=== PATIENT | male | born 1995 | race Caucasian/White ===

== ENCOUNTER 2019-09-07 11:33 | Emergency (ER) | payer OTHER ==
--- NOTE | 2019-09-07 11:36 | ERPHSYRPT ---
- History of Present Illness Time Seen by Provider: 09/07/19 11:36 Source: patient Exam Limitations: no limitations Physician History: This is a left-handed 24-year-old white male who was fishing yesterday when a carp jumped into his boat. The fish was large. Patient states that he punched the fish several times with his right hand. Today he has pain and swelling in his right hand. Occurred: yesterday Quality: constant, aching Severity of Pain-Max: mild Severity of Pain-Current: mild Extremities Pain Location: hand: right Modifying Factors: Improves With: movement Associated Symptoms: none Allergies/Adverse Reactions: acetaminophen [From Vicodin] Adverse Reaction (Intermediate, Verified 09/07/19 11:45) aggression hydrocodone [From Vicodin] Adverse Reaction (Intermediate, Verified 09/07/19 11:45) aggression Home Medications: No Reportable Medications [No Reported Medications] 09/07/19 [History] Travel Risk - International Travel Have you traveled outside of the country in past 3 weeks: No - Coronavirus Screening Are you exhibiting any of the following symptoms?: No Close contact with a COVID-19 positive Pt in past 14-21 Days: No - Review of Systems Constitutional: No Symptoms Eyes: No Symptoms Ears, Nose, & Throat: No Symptoms Respiratory: No Symptoms Cardiac: No Symptoms Abdominal/Gastrointestinal: No Symptoms Genitourinary Symptoms: No Symptoms Musculoskeletal: Injury (Right hand) Neurological: No Symptoms Psychological: No Symptoms Endocrine: No Symptoms Hematologic/Lymphatic: No Symptoms Immunological/Allergic: No Symptoms All Other Systems: Reviewed and Negative - Past Medical History Pertinent Past Medical History: No Neurological History: No Pertinent History ENT History: No Pertinent History Cardiac History: No Pertinent History Respiratory History: No Pertinent History Endocrine Medical History: No Pertinent History Musculoskeletal History: No Pertinent History GI Medical History: No Pertinent History History: No Pertinent History Psycho-Social History: No Pertinent History Male Reproductive Disorders: No Pertinent History - Past Surgical History Past Surgical History: No Neuro Surgical History: No Pertinent History Cardiac: No Pertinent History Respiratory: No Pertinent History Gastrointestinal: No Pertinent History Genitourinary: No Pertinent History Musculoskeletal: No Pertinent History Male Surgical History: No Pertinent History - Nursing Vital Signs Nursing Vital Signs: Initial Vital Signs Temperature 98.8 F 09/07/19 11:38 Pulse Rate 90 09/07/19 11:38 Respiratory Rate 20 09/07/19 11:38 Blood Pressure 140/81 09/07/19 11:38 O2 Sat by Pulse Oximetry 97 09/07/19 11:38 Pain Scale Pain Intensity 6 - Physical Exam General Appearance: no apparent distress, alert, anxiety Eyes, Ears, Nose, Throat Exam: normal ENT inspection, moist mucous membranes Neck Exam: normal inspection, non-tender, supple, full range of motion Cardiovascular/Respiratory Exam: chest non-tender Abdominal Exam: non-tender Back Exam: normal inspection, normal range of motion, No CVA tenderness, No vertebral tenderness Shoulder Exam: normal inspection, non-tender, no evidence of injury, normal ROM Elbow/Forearm Exam: normal inspection, non-tender, no evidence of injury, normal ROM Wrist Exam: normal inspection, non-tender, no evidence of injury, normal ROM Hand Exam: bone tenderness, soft tissue tenderness (Right hand), swelling Neuro/Tendon Exam: normal sensation, normal motor functions, normal tendon functions, responds to pain Mental Status Exam: alert, oriented x 3, cooperative Skin Exam: normal color, warm, dry SpO2 Interpretation: normal O2 Delivery: Room Air - Course Nursing assessment & vital signs reviewed: Yes Ordered Tests: Active Orders 24 hr Category Date Time Status HAND (MINIMUM 3 VIEWS) Stat Exams 09/07/19 11:46 Completed - Progress Progress: unchanged Progress Note: 09/07/19 12:25 X-ray of the right hand shows an old fifth metacarpal fracture deformity. No new or acute fracture or dislocation. Counseled pt/family regarding: diagnosis, need for follow-up, rad results - Departure Departure Disposition: Home Clinical Impression: Contusion of right hand Condition: Stable Critical Care Time: No Additional Instructions: Ice pack to right hand 3 times a day for the next 48 hours. Ibuprofen 600 mg orally with food 3 times a day for the next 5 days. Follow-up with your primary care physician for persistent symptoms
[2019-09-07 11:45] VITALS: PULSE 90
--- NOTE | 2019-09-07 12:23 | XRAY ---
Indication: 5th metacarpal pain and swelling following injury. Comparison: None 3 view right hand demonstrates old 5th metacarpal fracture deformity. No other bony, articular, or soft tissue abnormalities.
[2019-09-07 12:30] VITALS: BP 134/79; O2SAT 98
== END 2019-09-07 12:42 | disposition home or self-care (01) ==
LOC: ED 11:33
DX: S60.221A Contusion of right hand, initial encounter (principal); W22.8XXA Striking against or struck by other objects, initial encounter; Y93.89 Activity, other specified; Y92.9 Unspecified place or not applicable
CPT/HCPCS: 73130; 99283

== ENCOUNTER 2020-07-14 13:29 | Emergency (ER) | payer OTHER ==
[2020-07-14 13:42] VITALS: O2SAT 97
--- NOTE | 2020-07-14 14:09 | XRAY ---
Indication: Pain. Comparison: None 3 view right shoulder obtained. No bony, articular, or soft tissue abnormalities.
--- NOTE | 2020-07-14 14:44 | ERPHSYRPT ---
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 Pt in no apparent respiratory distress. pt right shoulder has no swelling, no bruising, no tenderness, csm X 4 Allergies/Adverse Reactions: acetaminophen [From Vicodin] Adverse Reaction (Intermediate, Verified 09/07/19 11:45) aggression hydrocodone [From Vicodin] Adverse Reaction (Intermediate, Verified 09/07/19 11:45) aggression Home Medications: No Reportable Medications [No Reported Medications] 09/07/19 [History] Hx Tetanus, Diphtheria Vaccination/Date Given: No Hx Influenza Vaccination/Date Given: No Hx Pneumococcal Vaccination/Date Given: No Immunizations Up to Date: Yes Travel Risk - International Travel Have you traveled outside of the country in past 3 weeks: No - Coronavirus Screening Are you exhibiting any of the following symptoms?: No Close contact with a COVID-19 positive Pt in past 14-21 Days: No - Vaccine Status Have you recieved a Covid-19 vaccination: No - Review of Systems Constitutional: No Symptoms, No Fever, No Chills Eyes: No Symptoms Ears, Nose, & Throat: No Symptoms Respiratory: No Symptoms, No Cough, No Dyspnea Cardiac: No Symptoms, No Chest Pain, No Edema, No Syncope Abdominal/Gastrointestinal: No Symptoms, No Abdominal Pain, No Nausea, No Vomiting, No Diarrhea Genitourinary Symptoms: No Symptoms, No Dysuria Musculoskeletal: No Symptoms, No Back Pain, No Neck Pain Skin: No Symptoms, No Rash Neurological: No Symptoms, No Dizziness, No Focal Weakness, No Sensory Changes Psychological: No Symptoms Endocrine: No Symptoms Hematologic/Lymphatic: No Symptoms Immunological/Allergic: No Symptoms All Other Systems: Reviewed and Negative - Past Medical History Pertinent Past Medical History: No Neurological History: No Pertinent History ENT History: No Pertinent History Cardiac History: No Pertinent History Respiratory History: No Pertinent History Endocrine Medical History: No Pertinent History Musculoskeletal History: No Pertinent History GI Medical History: No Pertinent History History: No Pertinent History Psycho-Social History: No Pertinent History Male Reproductive Disorders: No Pertinent History - Past Surgical History Past Surgical History: Yes Neuro Surgical History: No Pertinent History Cardiac: No Pertinent History Respiratory: No Pertinent History Gastrointestinal: No Pertinent History Genitourinary: No Pertinent History Musculoskeletal: No Pertinent History Male Surgical History: No Pertinent History Other Surgical History: left arm. facial. left leg - Social History Smoking Status: Current every day smoker How long have you smoked: years Exposure to second hand smoke: Yes Drug Use: none Patient Lives Alone: No - Nursing Vital Signs Nursing Vital Signs: Initial Vital Signs Temperature 98.4 F 07/14/20 13:36 Pulse Rate 68 07/14/20 13:36 Respiratory Rate 18 07/14/20 13:36 Blood Pressure 152/67 07/14/20 13:36 O2 Sat by Pulse Oximetry 97 07/14/20 13:36 Pain Scale Pain Intensity 4 - Physical Exam General Appearance: alert Eyes, Ears, Nose, Throat Exam: moist mucous membranes Neck Exam: non-tender, supple Cardiovascular/Respiratory Exam: chest non-tender, normal breath sounds, regular rate/rhythm, no respiratory distress Abdominal Exam: non-tender, No guarding Back Exam: normal inspection, normal range of motion, No vertebral tenderness Shoulder Exam: no evidence of injury, limited ROM (Range of motion limited due to pain.), soft tissue tenderness, No bone tenderness Elbow/Forearm Exam: normal inspection, non-tender, no evidence of injury, normal ROM Wrist Exam: normal inspection, non-tender, no evidence of injury, normal ROM Hand Exam: normal inspection, non-tender, no evidence of injury, normal ROM Neuro/Tendon Exam: normal sensation, normal motor functions Mental Status Exam: alert, oriented x 3, cooperative Skin Exam: normal color, warm, dry SpO2 Interpretation: normal SpO2: 97 O2 Delivery: Room Air - Course Nursing assessment & vital signs reviewed: Yes - Radiology Exams Shoulder X-ray Interpretation: Teleradiologist Report (Negative shoulder x-ray. No fractures or dislocations.) Ordered Tests: Active Orders 24 hr Category Date Time Status SHOULDER Stat Exams 07/14/20 13:44 Completed - Progress Progress: improved Progress Note: Patient reassessed. He feels well. Patient declined pain medication. X-ray negative for fracture dislocation. Patient does have some muscle tenderness at the right deltoid. Overlying soft tissue intact. No obvious signs of trauma. Extremities neurovascular intact distally. Patient declined a shoulder sling. He was provided a work note. Patient may return to work was cleared to do so by his family doctor. Patient voiced no other complaints concerns at this time. 07/14/20 14:47 Counseled pt/family regarding: diagnosis, need for follow-up, rad results - Departure Departure Disposition: Home Clinical Impression: Right shoulder strain Condition: Stable Critical Care Time: No Referrals: DOCTOR,NO FAMILY [Primary Care Provider] - FLORA SANCHEZ [ACTIVE STAFF] - Additional Instructions: Discharge/Care Plan COTY TREVIÑO was seen on 07/14/20 in the Emergency Room. The patient was counseled regarding Diagnosis,Lab results, Imaging studies, need for follow up and when to return to the Emergency Room. Prescriptions given: Discharge Note I have spoken with the patient and/or caregivers. I have explained the patient's condition, diagnosis and treatment plan based on the information available to me at this time. I have answered the patient's and/or caregiver's questions and addressed any concerns. The patient and/or caregivers have as good understanding of the patient's diagnosis, condition and treatment plan as can be expected at this point. The vital signs have been stable. The patient's condition is stable and appropriate for discharge from the emergency department. The patient will pursue further outpatient evaluation with the primary care physician or other designated or consulting physician as outlined in the discharge instructions. The patient and/or caregivers are agreeable to this plan of care and follow-up instructions have been explained in detail. The patient and/or caregivers have received these instruction. The patient/and or caregivers are aware that any significant change in condition or worsening of symptoms should prompt an immediate return to this or the closest emergency department or call 911.
[2020-07-14 15:00] VITALS: BP 124/36; PULSE 64
== END 2020-07-14 14:55 | disposition home or self-care (01) ==
LOC: ED 13:29
DX: S46.911A Strain of unspecified muscle, fascia and tendon at shoulder and upper arm level, right arm, initial encounter (principal); X50.9XXA Other and unspecified overexertion or strenuous movements or postures, initial encounter; Y93.89 Activity, other specified; Y92.89 Other specified places as the place of occurrence of the external cause
CPT/HCPCS: 73030; 99283